=== PATIENT | female | born 1950 | race African-American/Black ===

== ENCOUNTER 2019-12-11 07:17 | Observation (INO) ==
[2019-12-11] MEDS ORDERED: Ethanol\\Acetic Acid\\Na Ace\\Ben 1,000 ML IRRIG.SOLN IR ONE (07:38)
[2019-12-11] MEDS ORDERED: CeFAZolin Syr 2,000MG/20 ML 2,000 MG/20 ML SYRINGE IVPB ONE (07:44)
[2019-12-11] MEDS ORDERED: Ringers Solution, Lactated 1,000 ML IVC SCH ×2 (07:45→12:13)
[2019-12-11] MEDS ORDERED: Ondansetron 4 MG/2 ML VIAL IVP ONE (08:09)
[2019-12-11] MEDS ORDERED: *HR* OxyCODONE Immed Rel 5 MG TABLET PO PRN (08:09)
[2019-12-11] MEDS ORDERED: *HR* Promethazine 25 MG/ML VIAL IVP PRN ×2 (08:09→12:13)
[2019-12-11] MEDS ORDERED: *HR* Midazolam HCl 2 MG/2 ML VIAL ONE (08:23)
[2019-12-11] MEDS ORDERED: *HR* FentaNYL (PF) 100 MCG/2 ML VIAL ONE (08:24)
[2019-12-11] MEDS ORDERED: Tranexamic Acid 1,000 MG/10 ML VIAL ONE ×2 (09:02→09:03)
[2019-12-11] MEDS ORDERED: Lidocaine -MPF 2% 2 ML VIAL ONE (09:02)
[2019-12-11] MEDS ORDERED: Propofol 500 MG/50 ML INFUS..BTL ONE (09:02)
[2019-12-11] MEDS ORDERED: *HR* Propofol 200 MG/20 ML VIAL IVP ONE (09:02)
[2019-12-11] MEDS ORDERED: EPHEDrine 50 MG/ML VIAL ONE (09:17)
[2019-12-11] MEDS ORDERED: *HR* PHENYLEPHRINE 1,000 MCG/10 ML SYRINGE IVP ONE (09:34)
[2019-12-11] MEDS ORDERED: Ondansetron 4 MG/2 ML VIAL ONE (09:38)
[2019-12-11] MEDS ORDERED: Dexamethasone 4 MG/ML VIAL ONE (09:58)
[2019-12-11] MEDS ORDERED: Ketorolac 30 MG/ML VIAL ONE (11:02)
[2019-12-11] MEDS: *HR* HYDROmorphone (PF) 1 MG/ML SYRINGE IVP PRN ×2 (11:09→11:14)
[2019-12-11] MEDS ORDERED: Acetaminophen IV 1,000 MG/100 ML INFUS..BTL ONE (11:32)
[2019-12-11] MEDS ORDERED: Acetaminophen IV 1,000 MG/100 ML INFUS..BTL IVPB ONE (11:32)
[2019-12-11 11:57] LABS: Hematocrit 30.2 % (35.3-44.9); Hemoglobin 10.4 g/dL (11.5-15.4)
[2019-12-11] MEDS ORDERED: Ibuprofen 800 MG TABLET PO PRN (12:13)
[2019-12-11] MEDS ORDERED: NON-FORMULARY MEDICATION 1 EACH EACH (Multivit-Min/Iron/Folic/Lutein [Centrum Silver Women PO SCH (12:13)
[2019-12-11] MEDS ORDERED: Ondansetron 4 MG/2 ML VIAL IVP PRN (12:13)
[2019-12-11] MEDS ORDERED: Naloxone 0.4 MG/ML INJ IVP PRN (12:13)
[2019-12-11] MEDS ORDERED: HYDROcodone BIT/Homatropine 5 MG TABLET PO PRN (12:13)
[2019-12-11] MEDS ORDERED: Sennosides 8.6 MG TABLET PO PRN (12:13)
[2019-12-11] MEDS ORDERED: traZODone 50 MG TABLET PO PRN (12:13)
[2019-12-11] MEDS ORDERED: MOM Conc 10 ML UD.LIQ PO PRN (12:13)
[2019-12-11] MEDS: FLUoxetine 20 MG CAPSULE PO SCH (14:11)
[2019-12-11] MEDS: Multivit/Ca/Min/Fe/FA 1 TAB TABLET PO SCH (14:12)
[2019-12-11] MEDS: *HR* OxyCODONE Immed Rel 5 MG TABLET PO PRN (15:23)
[2019-12-11] MEDS: Ascorbic Acid 500 MG TABLET PO SCH (15:23)
[2019-12-11] MEDS: ceFAZolin 2,000 MG in 0.9 % Sodium Chloride 100 ML IVPB SCH ×2 (15:23→23:59)
[2019-12-12] MEDS: *HR* OxyCODONE Immed Rel 5 MG TABLET PO PRN ×2 (03:18→22:07)
[2019-12-12 05:46] LABS: Basophils % 0.1 %; Eosinophils % 0.2 %; Hematocrit 26.4 % (35.3-44.9); Hemoglobin 9.3 g/dL (11.5-15.4); Immature Granulocytes % 0.4 % (0-4); Lymphocytes # 1.3 K/mcL (0.6-4.6); Lymphocytes % 16.1 %; Mean Corpuscular HGB Conc 35.2 g/dL (31.6-35.5); Mean Corpuscular Hemoglobin 30.8 pg (28.0-33.3); Mean Corpuscular Volume 87.4 fL (83.0-100.0); Mean Platelet Volume 9.7 fL (9.4-12.4); Monocytes # 0.7 K/mcL (0.0-1.3); Monocytes % 8.8 %; Platelet Count 174 K/mcL (140-400); Red Blood Count 3.02 M/mcL (3.82-4.97); Red Cell Distribution Width 12.6 % (11.5-14.5); Segmented Neutrophils % 74.4 %; White Blood Count 8.1 K/mcL (4.3-11.1)
[2019-12-12 06:11] LABS: BUN/Creatinine Ratio 15 (6-26); Blood Urea Nitrogen 12 mg/dL (8-23); Calcium 8.4 mg/dL (8.6-10.3); Carbon Dioxide 29 mEq/L (23-29); Chloride 95 mEq/L (98-107); Glucose 108 mg/dL (70-105); Osmolality,Calculated 274 (280-300); Potassium 3.3 mEq/L (3.5-5.1); Sodium 132 mEq/L (136-145); eGFR For African Americans > 60 (> 60); eGFR For Non-African Americans > 60 (> 60)
[2019-12-12] MEDS: FLUoxetine 20 MG CAPSULE PO SCH (08:51)
[2019-12-12] MEDS: Ascorbic Acid 500 MG TABLET PO SCH ×2 (08:52→17:16)
[2019-12-12] MEDS: Aspirin Enteric Coated 81 MG Tablet PO SCH (08:52)
[2019-12-12] MEDS: Multivit/Ca/Min/Fe/FA 1 TAB TABLET PO SCH (08:52)
[2019-12-13 06:20] LABS: Basophils % 0.3 %; Eosinophils # 0.1 K/mcL (0.0-0.6); Hematocrit 28.2 % (35.3-44.9); Hemoglobin 9.6 g/dL (11.5-15.4); Immature Granulocytes % 0.3 % (0-4); Lymphocytes % 12.7 %; Mean Corpuscular Hemoglobin 30.6 pg (28.0-33.3); Mean Corpuscular Volume 89.8 fL (83.0-100.0); Mean Platelet Volume 9.9 fL (9.4-12.4); Monocytes # 0.7 K/mcL (0.0-1.3); Monocytes % 8.9 %; Neutrophils # 6.1 K/mcL (1.6-8.9); Platelet Count 189 K/mcL (140-400); Red Blood Count 3.14 M/mcL (3.82-4.97); Red Cell Distribution Width 12.6 % (11.5-14.5); Segmented Neutrophils % 76.8 %
[2019-12-13 06:40] LABS: BUN/Creatinine Ratio 12 (6-26); Blood Urea Nitrogen 9 mg/dL (8-23); Calcium 8.5 mg/dL (8.6-10.3); Carbon Dioxide 31 mEq/L (23-29); Chloride 95 mEq/L (98-107); Glucose 104 mg/dL (70-105); Osmolality,Calculated 275 (280-300); Potassium 3.6 mEq/L (3.5-5.1); Sodium 133 mEq/L (136-145); eGFR For African Americans > 60 (> 60); eGFR For Non-African Americans > 60 (> 60)
[2019-12-13] MEDS: FLUoxetine 20 MG CAPSULE PO SCH (08:52)
[2019-12-13] MEDS: Multivit/Ca/Min/Fe/FA 1 TAB TABLET PO SCH (08:52)
[2019-12-13] MEDS: Ascorbic Acid 500 MG TABLET PO SCH (08:52)
[2019-12-13] MEDS: Aspirin Enteric Coated 81 MG Tablet PO SCH (08:52)
[2019-12-13 10:01] VITALS: BP 113/66
[2019-12-13] MEDS: *HR* OxyCODONE Immed Rel 5 MG TABLET PO PRN (11:18)
== END 2019-12-13 11:10 | disposition home health service (06) ==
LOC: 3NENU 07:17 → SAMDAY 07:17 → 3NENU 11:56
PROVIDERS: ADMIT Orthopaedic Surgery; ATTEND Orthopaedic Surgery